=== PATIENT | female | born 1965 | race Caucasian/White ===

== ENCOUNTER 2024-05-31 01:51 | Emergency (ER) | payer OTHER ==
[~2024-05-31] VITALS: Ht 162.6 cm; Wt 61.0 kg
[2024-05-31 02:13] VITALS: O2SAT 97
[2024-05-31 02:20] VITALS: TEMP 36.6
[2024-05-31] MEDS: LIDOCAINE HCL/PF 1% 10 MG/ML 5ML VIAL INFIL ONE (03:54)
[2024-05-31] MEDS: BACITRACIN ZINC OINT UDPKT TOP ONE (03:54)
[2024-05-31 04:52] VITALS: BP 122/82; PULSE 100; RESP 14; O2SAT 97
== END 2024-05-31 04:55 | disposition home or self-care (01) ==
LOC: ER 01:51
DX: S01.411A Laceration without foreign body of right cheek and temporomandibular area, initial encounter (principal); Z88.8 Allergy status to other drugs, medicaments and biological substances; W22.03XA Walked into furniture, initial encounter; Y93.89 Activity, other specified; Y92.89 Other specified places as the place of occurrence of the external cause; Y99.8 Other external cause status
CPT/HCPCS: 99282; 12013; J2003; 99281